=== PATIENT | female | born 1955 | race Caucasian/White ===

== ENCOUNTER 2017-01-02 21:38 | Emergency (ER) | payer OTHER ==
[~2017-01-02] VITALS: Ht 170.2 cm; Wt 110.9 kg
[~2017-01-02 21:38] MED LIST: CELEBREX 200MG200 MG PO; ULTRAM 50MG TAB50 MG PO
[2017-01-02 21:41] VITALS: TEMP 98.6
[2017-01-02] MEDS ORDERED: PRILOSEC 20MG20 MG PO (21:45)
[2017-01-02] MEDS ORDERED: MOBIC15 MG PO (21:45)
[2017-01-02] MEDS ORDERED: VESICARE10 MG PO (21:46)
[2017-01-03 00:26] LABS: BASO # 0.1 (0.0-0.2); BASO % 0.6 % (0.0-2.0); EOS # 0.1 (0.0-0.7); EOS % 0.6 % (0-4.0); GRAN # 6.2 (1.4-6.5); GRAN % 72.8 % (42.2-75.2); HEMOGLOBIN 13.5 g/dl (12.5-16.0); LYMPH # 1.9 (1.2-3.4); LYMPH % 21.6 % (20.0-51.0); MEAN CELL VOLUME 88 fl (80.0-100.0); MEAN CORPUSCULAR HEMOGLOBIN 29 pg (27.0-31.0); MEAN CORPUSCULAR HGB CONC 33 g/dl (33.0-37.0); MEAN PLATELET VOLUME 9.9 fl (7.4-10.4); MONO # 0.3 (0.1-0.6); PLATELET COUNT 291 K/mm3 (130-400); RED BLOOD COUNT 4.66 M/mm3 (4.10-5.30); REDCELL DISTRIBUTION WIDTH-CV 13.4 % (11.5-14.5); WHITE BLOOD COUNT 8.6 K/mm3 (4.8-10.8)
[2017-01-03 00:38] LABS: ADJUSTED CALCIUM 9.6 mg/dL (8.4-10.2); ALANINE AMINOTRANSFERASE 44 U/L (9-52); ALBUMIN 4.5 gm/dL (3.5-5.0); ALKALINE PHOSPHATASE 86 U/L (50-136); ANION GAP 14 mmol/L (7-16); BILIRUBIN,TOTAL 0.9 mg/dL (0.0-1.0); BLOOD UREA NITROGEN 16 mg/dL (7-17); CARBON DIOXIDE 27 mmol/L (22-30); CHLORIDE 101 mmol/L (98-107); CREATININE, serum 0.86 mg/dL (0.52-1.25); GLUCOSE 157 mg/dL (74-106); POTASSIUM 3.2 mmol/L (3.4-5.0); SODIUM 141 mmol/L (137-145); TOTAL PROTEIN 8.2 gm/dL (6.4-8.2)
[2017-01-03 00:47] LABS: C-REACTIVE PROTEIN < 0.5 mg/dL (0.0-0.9)
[2017-01-03 03:35] VITALS: BP 145/82; PULSE 86
== END 2017-01-03 03:36 | disposition home or self-care (01) ==
LOC: COL.ER 21:38
PROVIDERS: Emergency Medicine
DX: K59.00 Constipation, unspecified (principal)
CPT/HCPCS: J2405; J7030

== ENCOUNTER → 2017-07-22 | Outpatient (CLI) | payer OTHER ==
[~2017-07-22] MED LIST changes: +MOBIC15 MG PO; +PRILOSEC 20MG20 MG PO; +VESICARE10 MG PO
== END ==
LOC: MC.RAD 13:00
DX: Z12.31 Encounter for screening mammogram for malignant neoplasm of breast (principal)

== ENCOUNTER → 2018-08-27 | Outpatient (CLI) | payer MEDICARE, OTHER | LOC: MC.RAD 11:20 | DX: Z12.31 Encounter for screening mammogram for malignant neoplasm of breast (principal) ==

== ENCOUNTER → 2019-10-14 | Outpatient (CLI) | payer MEDICARE, OTHER | LOC: MC.RAD 07:08 | DX: Z12.31 Encounter for screening mammogram for malignant neoplasm of breast (principal) ==

== ENCOUNTER → 2020-10-15 | Outpatient (CLI) | payer MEDICARE, OTHER | LOC: MC.RAD 10:15 | DX: Z12.31 Encounter for screening mammogram for malignant neoplasm of breast (principal) ==

== ENCOUNTER → 2020-12-20 | Outpatient (CLI) | payer MEDICARE, OTHER | LOC: DIA.ED 13:12 | DX: E11.9 Type 2 diabetes mellitus without complications (principal); Z79.84 Long term (current) use of oral hypoglycemic drugs; I10 Essential (primary) hypertension; E78.5 Hyperlipidemia, unspecified; E66.8 Other obesity | CPT/HCPCS: G0108 ==

== ENCOUNTER → 2020-12-24 | Outpatient (CLI) | payer MEDICARE, OTHER | LOC: DIA.ED 09:36 | DX: E11.9 Type 2 diabetes mellitus without complications (principal); Z46.51 Encounter for fitting and adjustment of gastric lap band; I10 Essential (primary) hypertension; E78.5 Hyperlipidemia, unspecified; E66.8 Other obesity ==

== ENCOUNTER → 2021-01-16 | Outpatient (CLI) | payer MEDICARE, OTHER ==
[~2021-01-16] MED LIST changes: +CELEBREX 1100 MG/CAP PO; +GLUCOPHAGE XR500 M1 PO; +LIPITOR 10MG10 MG PO; +ZOFRAN 4MG T4 MG/TAB PO
== END ==
LOC: DIA.ED 01-09 08:59
DX: E11.9 Type 2 diabetes mellitus without complications (principal); Z79.84 Long term (current) use of oral hypoglycemic drugs; E78.5 Hyperlipidemia, unspecified; I10 Essential (primary) hypertension; E66.8 Other obesity
CPT/HCPCS: G0108

== ENCOUNTER 2021-01-24 15:22 | Observation (INO) | payer MEDICARE, OTHER ==
[~2021-01-24] VITALS: Ht 170.2 cm; Wt 109.1 kg
[~2021-01-24 15:22] MED LIST changes: -CELEBREX 1100 MG/CAP PO; -GLUCOPHAGE XR500 M1 PO; -LIPITOR 10MG10 MG PO; -ZOFRAN 4MG T4 MG/TAB PO
[2021-01-24 16:36] LABS: COLLECTION METHOD CLEAN CATCH
[2021-01-24 16:43] LABS: ALANINE AMINOTRANSFERASE 27 U/L (4-34); ALBUMIN 4.7 gm/dL (3.5-5.0); ALKALINE PHOSPHATASE 106 U/L (50-136); ANION GAP 10 mmol/L (7-16); AST,SGOT 33 U/L (15-37); BILIRUBIN,TOTAL 0.7 mg/dL (0.0-1.0); BLOOD UREA NITROGEN 17 mg/dL (7-17); CALCIUM 10.1 mg/dL (8.4-10.2); CARBON DIOXIDE 23 mmol/L (22-30); CHLORIDE 105 mmol/L (98-107); CREATININE, serum 0.77 (0.52-1.25); GLUCOSE 118 mg/dL (74-106); LIPASE 157 U/L (23-300); POTASSIUM 3.8 mmol/L (3.4-5.0); SODIUM 138 mmol/L (137-145); TOTAL PROTEIN 8.4 gm/dL (6.4-8.2)
[2021-01-24 16:47] LABS: C-REACTIVE PROTEIN < 0.5 mg/dL (0.0-0.9)
[2021-01-24 16:58] LABS: BASO % 0.3 % (0.0-2.0); EOS % 0.2 % (0-4.0); GRAN # 8.2 (1.4-6.5); GRAN % 80.3 % (42.2-75.2); HEMATOCRIT 38.3 % (37.0-47.0); HEMOGLOBIN 12.1 g/dl (12.5-16.0); LYMPH # 1.4 (1.2-3.4); LYMPH % 13.4 % (20.0-51.0); MEAN CELL VOLUME 83 fl (80.0-100.0); MEAN CORPUSCULAR HEMOGLOBIN 26 pg (27.0-31.0); MEAN CORPUSCULAR HGB CONC 32 g/dl (33.0-37.0); MONO # 0.6 (0.1-0.6); MONO % 5.4 % (1.7-9.3); PLATELET COUNT 363 K/mm3 (130-400); RED BLOOD COUNT 4.62 M/mm3 (4.10-5.30); REDCELL DISTRIBUTION WIDTH-CV 14.6 % (11.5-14.5)
[2021-01-24 18:54] LABS: MUCOUS Present /lpf; PH 6 (5-8); SQUAMOUS EPITHELIAL 0-2 /hpf; URINE APPEARANCE Clear; URINE BACTERIA None Seen /hpf; URINE BILIRUBIN Negative (NEGATIVE); URINE BLOOD Negative (NEGATIVE); URINE COLOR Straw; URINE GLUCOSE Negative (NEGATIVE); URINE KETONE 1+ (NEGATIVE); URINE LEUKOCYTE ESTERASE Negative (NEGATIVE); URINE NITRATE Negative (NEGATIVE); URINE PROTEIN(semi-quant) Negative (NEGATIVE); URINE RBC 0-2 /hpf; URINE UROBILINOGEN Negative (NEGATIVE)
--- NOTE | 2021-01-24 21:00 | NUR ---
Pt. arrived to the floor via wheelchair. Pt. able to ambulate to the bed independently. Pt. is A&OX3, assessment complete. INT to lt. wrist patent. Pt. reports nausea and abd. pain, will give pain meds per orders. Pt. denies further needs, call light within reach.
[2021-01-24 21:17] VITALS: BP 185/80; PULSE 73; TEMP 98.6
[2021-01-24] MEDS ORDERED: LIPITOR 10MG10 MG PO (21:30)
[2021-01-24] MEDS ORDERED: CELEBREX 1100 MG/CAP PO (21:31)
[2021-01-24] MEDS ORDERED: GLUCOPHAGE XR500 M1 PO (21:32)
[2021-01-25] VITALS (14 sets, daily range): BP systolic 135–161; BP diastolic 54–89; PULSE 72–84; TEMP 97.6–98.8
--- NOTE | 2021-01-25 07:20 | NUR ---
Pt reports nausea without emesis. Primary nurse notified. It is too early for medication intervention as pt was administered medication during NOC shift.
--- NOTE | 2021-01-25 08:00 | NUR ---
PATIENT IS A&O. VSS. PATIENT C/O NAUSEA. PATIENT GETTING IV PHEN & ZOFRAN ALTERNATING FOR NAUSEA. PATIENT NOT GETTING MUCH RELIEF FROM NAUSEA MEDS. APPLIED COOL CLOTH TO HEAD, TURN DOWN ROOM TEMP, AND GAVE PATIENT ALCOHOL PREPS TO SMELL. PATIENT TRYING TO GET BY TILL SURGERY TIME LATER TODAY. PATIENT IS NPO. CONSENT OBTAINED. IV FLUIDS INFUSING DAPHNE PUMP INTO LEFT WRIST. HEAD TO TOE ASSESSMENT COMPLETE. STUDENT NURSE WORKING WITH PATIENT TODAY, SEE CHARTING.
--- NOTE | 2021-01-25 13:26 | NUR ---
Gas Specialist met with patient to discuss discharge planning. Patient is not feeling well but agrees to answer intake questions. Patient lives in [place] with her , Aristides (ph#[phone]) and sees Dr. Moore for primary care. Patient obtains medications from [facility] and does not use any DME. Patient does not have Advance Directives. Patient reports she is independent with ADLS and plans to return home upon discharge. SW will continue to follow for discharge needs.
--- NOTE | 2021-01-25 15:40 | NUR ---
PATIENT GOING DOWN TO SURGERY VIA BED. CONSENT ON CHART. IV FLUIDS INFUSING VIA GRAVITY. PATIENT OFF FLOOR.
--- NOTE | 2021-01-25 18:05 | NUR ---
PATIENT BACK IN ROOM POST OP. NO C/O PAIN OR NAUSEA. LAP SITES X4 ARE CD&I. VSS. PATIENT RESTING COMFORTABLY WITH CALL LIGHT IN REACH.
--- NOTE | 2021-01-25 21:04 | NUR ---
Assisted to bathroom, steady gait, voids and back to bed. Has IVF to right hand without redness or swelling. Refuses Metformin tonight, since she hasn't eaten. Medicated with scheduled meds including her scheduled Tramadol. Has robotic sites to abdomen x4, glued and dry. Ready for bed.
[2021-01-26 00:05] VITALS: BP 136/61; PULSE 81; TEMP 97.3
--- NOTE | 2021-01-26 03:30 | NUR ---
IVF complete, capped at this time. Pt denies needs at this time.
[2021-01-26 03:58] VITALS: BP 131/59; PULSE 74; TEMP 98
--- NOTE | 2021-01-26 06:18 | NUR ---
COMPLAINS OF NAUSEA AND PAIN. MEDICATED WITH ZOFRAN 8MG IVP AND ORAL TRAMADOL AND PROTONIX.
[2021-01-26 07:49] VITALS: BP 149/67; PULSE 76; TEMP 98.5
--- NOTE | 2021-01-26 09:01 | NUR ---
Patient refused Metformin r/t CT scan on 01.24.21 approx 1800.
[2021-01-26] MEDS ORDERED: ZOFRAN 4MG T4 MG/TAB PO (10:14)
[2021-01-26 11:07] VITALS: BP 149/68; PULSE 71; TEMP 98.7
--- NOTE | 2021-01-26 12:09 | NUR ---
Patient alert and oriented, answers questions appropriately. See assessment. Abdomen soft, non distended, tender to palpation. Lap sites to abdomen with edges well approximated, no redness or drainage noted. +Flatus. No bowel movement. Post op exercises reviewed with patient. No c/o at this time.
[2021-01-26 15:45] VITALS: BP 118/52; PULSE 75; TEMP 98.5
== END 2021-01-26 18:07 | disposition home or self-care (01) ==
LOC: COL.ER 15:22 → SURG 19:03
PROVIDERS: Family Medicine; Nurse Practitioner; ADMIT Surgery
DX: K80.12 Calculus of gallbladder with acute and chronic cholecystitis without obstruction (principal); K82.A1 Gangrene of gallbladder in cholecystitis; K21.9 Gastro-esophageal reflux disease without esophagitis; E78.00 Pure hypercholesterolemia, unspecified; E11.9 Type 2 diabetes mellitus without complications; M19.90 Unspecified osteoarthritis, unspecified site; Z90.89 Acquired absence of other organs; Z90.710 Acquired absence of both cervix and uterus; Z79.84 Long term (current) use of oral hypoglycemic drugs; Z79.891 Long term (current) use of opiate analgesic; Z88.8 Allergy status to other drugs, medicaments and biological substances
CPT/HCPCS: G0378; J0690; J1100; J1170; J1885; J2405; J2543; J2550; J2704; J3010; J7030; Q9967

== ENCOUNTER → 2021-03-13 | Outpatient (CLI) | payer MEDICARE, OTHER ==
[~2021-03-13] MED LIST changes: +CELEBREX 1100 MG/CAP PO; +GLUCOPHAGE XR500 M1 PO; +LIPITOR 10MG10 MG PO; +ZOFRAN 4MG T4 MG/TAB PO
== END ==
LOC: DIA.ED 13:45
DX: E11.9 Type 2 diabetes mellitus without complications (principal); Z79.84 Long term (current) use of oral hypoglycemic drugs; E78.5 Hyperlipidemia, unspecified; I10 Essential (primary) hypertension

== ENCOUNTER → 2021-07-10 | Outpatient (CLI) | payer MEDICARE, OTHER | LOC: DIA.ED 13:39 | DX: E11.65 Type 2 diabetes mellitus with hyperglycemia (principal); Z79.84 Long term (current) use of oral hypoglycemic drugs; I10 Essential (primary) hypertension; E78.5 Hyperlipidemia, unspecified ==

== ENCOUNTER → 2021-11-25 | Outpatient (CLI) | payer MEDICARE | LOC: MC.RAD 10:45 | DX: Z12.31 Encounter for screening mammogram for malignant neoplasm of breast (principal) ==

== ENCOUNTER → 2021-12-09 | Outpatient (CLI) | payer MEDICARE, OTHER | LOC: DIA.ED 09:00 | DX: E11.65 Type 2 diabetes mellitus with hyperglycemia (principal); Z79.84 Long term (current) use of oral hypoglycemic drugs; E78.5 Hyperlipidemia, unspecified; I10 Essential (primary) hypertension | CPT/HCPCS: G0270 ==

== ENCOUNTER → 2023-04-03 | Outpatient (CLI) | payer MEDICARE, OTHER | LOC: COL.PUL 10:56 | DX: R06.02 Shortness of breath (principal) ==

== ENCOUNTER → 2024-02-04 | Outpatient (CLI) | payer MEDICARE | LOC: MC.RAD 09:26 | DX: Z12.31 Encounter for screening mammogram for malignant neoplasm of breast (principal) ==